=== PATIENT | female | born 1980 | race African-American/Black ===

== ENCOUNTER 2021-04-18 11:25 | Emergency (ER) | payer MEDICAID, MEDICARE ==
[~2021-04-18] VITALS: Ht 167.6 cm; Wt 91.0 kg
[~2021-04-18 11:25] MED LIST: NITR-87 PO; ONDA4TAB5 PO; PREN1TAB49
[2021-04-18 12:13] LABS: BASOPHILS % 0.9 % (0.0-2.0); EOSINOPHILS % 0.7 % (0.0-5.0); HEMATOCRIT. 34.1 % (36.0-48.0); HEMOGLOBIN. 11.9 g/dL (12.0-16.0); LYMPHOCYTES % 17.2 % (20.0-50.0); MEAN PLATELET VOLUME 6.2 fl (7.4-10.4); MONOCYTES % 6.1 % (2.0-8.0); NEUTROPHILS % 75.1 % (40.0-76.0); PLATELET 427 x1000/uL (130-400); RED BLOOD CELL COUNT 3.97 mill/uL (4.2-5.4); RED CELL DISTRIBUTION WIDTH 13.5 % (11.6-14.6)
[2021-04-18 12:21] LABS: CHLORIDE 106 mEq/L (98-107)
[2021-04-18 12:24] LABS: ETHANOL BLOOD < 10 mg/dL
[2021-04-18 12:27] LABS: HCG SCREEN NEGATIVE
[2021-04-18] MEDS ORDERED: METOCLOPRAMIDE HCL 10MG/2ML VIAL IV ONE (12:45)
[2021-04-18] MEDS ORDERED: SODIUM CHLORIDE 0.9% 1,000 ML IV ONE (12:45)
[2021-04-18 16:37] LABS: CLARITY URINE CLOUDY (CLEAR); COLOR URINE ORANGE (YELLOW); KETONES URINE NEGATIVE (NEGATIVE); LEUKOCYTE ESTERASE URINE 1+ (NEGATIVE); NITRITE URINE NEGATIVE (NEGATIVE); OCCULT BLOOD URINE 3+ (NEGATIVE); PROTEIN URINE 2+ (NEGATIVE); SPECIFIC GRAVITY URINE 1.024 (1.005-1.030)
[2021-04-18 16:51] LABS: *AMPHETAMINES SCREEN URINE NEGATIVE (NEGATIVE); *BARBITURATES SCREEN URINE NEGATIVE (NEGATIVE); *BENZODIAZEPINES SCREEN URINE NEGATIVE (NEGATIVE); *COCAINE SCREEN URINE NEGATIVE (NEGATIVE); METHADONE URINE SCREEN NEGATIVE (NEGATIVE); OPIATES URINE SCREEN NEGATIVE (NEGATIVE); PHENCYCLIDINE URINE SCREEN NEGATIVE (NEGATIVE)
[2021-04-18 16:52] LABS: CANNABINOID URINE SCREEN NEGATIVE (NEGATIVE)
[2021-04-18] MEDS ORDERED: METOCLOPRAMIDE HCL 10MG/2ML VIAL IV NR (17:15)
[2021-04-18] MEDS ORDERED: METOCLOPRAMIDE HCL 10MG/2ML VIAL IM ONE (17:30)
[2021-04-18] MEDS ORDERED: IBUPROFEN 400MG TABLET PO ONE (17:30)
[2021-04-18 18:11] VITALS: BP 131/71
== END 2021-04-18 18:11 | disposition home or self-care (01) ==
LOC: ER 11:25
DX: R11.0 Nausea (principal)
CPT/HCPCS: 36415; 80053; 80305; 80320; 81003; 81025; 84703; 85025; 93005; 96372; 99284; J2765; J7030; G0480